=== PATIENT | female | born 2000 | race Hispanic/Latino ===

== ENCOUNTER 2019-07-08 15:32 | Emergency (ER) | payer BC ==
--- OUTSIDE RECORDS SUMMARY | 2019-07-08 15:49 | XMS REPORT ---
:2000 Author Organization eClinicalWorks Care Team Providers Name Role Phone Ave Andrew Provider Role Unavailable Allergies No Known Allergies Problems Problem Type Condition Code Onset Dates Condition Status Problem Encounter for general adult medical Z00.00 Active examination without abnormal findings Problem Asthma, unspecified asthma J45.909 Active severity, unspecified whether complicated, unspecified whether persistent Problem Amenorrhea N91.2 Active Problem Seasonal allergic rhinitis, J30.2 Active unspecified trigger Medications No Known Medications Results No Known Results Summary Purpose eClinicalWorks Submission
--- OUTSIDE RECORDS SUMMARY | 2019-07-08 15:49 | XMS REPORT ---
:2000 Author Organization eClinicalWorks Care Team Providers Name Role Phone Ave Andrew Provider Role Unavailable Allergies, Adverse Reactions, Alerts Substance Reaction Event Type N.K.D.A. Info Not Available Non Drug Allergy Problems Problem Type Condition Code Onset Dates Condition Status Problem Seasonal allergic rhinitis, J30.2 Active unspecified trigger Problem Encounter for general adult medical Z00.00 Active examination without abnormal findings Problem Asthma, unspecified asthma J45.909 Active severity, unspecified whether complicated, unspecified whether persistent Assessment Seasonal allergic rhinitis, J30.2 Active unspecified trigger Assessment Acute urticaria L50.8 Active Assessment Rash R21 Active Problem Infection of nail bed of finger of L03.011 Active right hand Problem Acute rhinitis J00 Active Problem Loss of appetite R63.0 Active Problem Hemorrhoids, unspecified hemorrhoid K64.9 Active type Problem Amenorrhea N91.2 Active Problem Intrinsic eczema L20.84 Active Problem Delayed period N91.0 Active Medications Medication Code Code Instructions Start End Status Dosage System Date Date Triamcinolone [facility] [id number] 0.1 % Jun 06, Active 1 application Acetonide Externally 2019 Twice a day Results No Known Results Summary Purpose eClinicalWorks Submission
--- OUTSIDE RECORDS SUMMARY | 2019-07-08 15:49 | XMS REPORT ---
:2000 Author Organization eClinicalWorks Care Team Providers Name Role Phone Sarah Saunders Provider Role Unavailable Allergies, Adverse Reactions, Alerts Substance Reaction Event Type N.K.D.A. Info Not Available Non Drug Allergy Problems Problem Type Condition Code Onset Dates Condition Status Assessment Hemorrhoids, unspecified hemorrhoid K64.9 Active type Assessment Delayed period N91.0 Active Problem Delayed period N91.0 Active Problem Asthma, unspecified asthma J45.909 Active severity, unspecified whether complicated, unspecified whether persistent Problem Hemorrhoids, unspecified hemorrhoid K64.9 Active type Problem Encounter for general adult medical Z00.00 Active examination without abnormal findings Problem Seasonal allergic rhinitis, J30.2 Active unspecified trigger Problem Amenorrhea N91.2 Active Medications No Known Medications Results Name Result Date Reference Range Unit Abnormality Flag TEST URINE ----RESULTS Negative [id number] Summary Purpose eClinicalWorks Submission
--- OUTSIDE RECORDS SUMMARY | 2019-07-08 15:49 | XMS REPORT ---
[...] unspecified whether complicated, unspecified whether persistent Assessment Acute rhinitis J00 Active Assessment Intrinsic eczema L20.84 Active Assessment Loss of appetite R63.0 Active Assessment Infection of nail bed of finger of L03.011 Active right hand Problem Infection of nail bed of finger of L03.011 Active right hand Problem Acute rhinitis J00 Active Problem Loss of appetite R63.0 Active Problem Hemorrhoids, unspecified hemorrhoid K64.9 Active type Problem Amenorrhea N91.2 Active Problem Intrinsic eczema L20.84 Active Problem Delayed period N91.0 Active Medications Medication Code Code Instructions Start End Status Dosage System Date Date Triamcinolone [facility] [id number] 0.1 % Jun 06, Active 1 application Acetonide Externally 2019 Twice a day Keflex ND [id number] 500 MG Orally Jun 06Jun Active 1 capsule every 12 hrs 2019 Bromfed DM [facility] [id number] 30-2-10 MG/5ML Jun 06, Jun Active 5 ml Orally TID PRN 2019 Results No Known Results Summary Purpose eClinicalWorks Submission
[2019-07-08] MEDS ORDERED: dexAMETHasone 10 MG/ML VIAL ONE (16:26)
[2019-07-08] MEDS ORDERED: DIPHENHYDRAMINE 25 MG TAB/CAP ONE (16:26)
[2019-07-08] MEDS ORDERED: IPRATROPIUM BROM 0.5MG/2.5ML ONE (16:26)
[2019-07-08] MEDS ORDERED: ALBUTEROL 2.5 MG/3 ML NEB SOL ONE (16:26)
[2019-07-08] MEDS ORDERED: FAMOTIDINE 20 MG TAB ONE ×2 (16:27)
[2019-07-08] MEDS ORDERED: ONDANSETRON 4 MG (ODT) TAB ONE (16:27)
--- NOTE | 2019-07-08 16:38 | EDPHYS ---
Physician Documentation [facility] Name: Jesus Newell Age: 19 yrs Sex: Female : 2000 Arrival Date: 07/08/2019 Time: 15:35 Bed 8 Private MD: ED Physician Calin Vasques HPI: 07/07 16:15 This 19 yrs old Female presents to ER via Ambulatory with complaints of Hives, pm1 Breathing Difficulty. 16:15 The patient's rash thought to be caused by an unknown cause. The rash is located on the pm1 body diffusely. The rash can be described as urticarial. 16:15 Onset: The symptoms/episode began/occurred Patient with a cough present for the past pm1 2-3 weeks. Patient with hives for the past week. Has seen two other providers, PCP Lorrie and [facility] for her rash and was administered steroids and breathing treatments. Was discharged home with steroids. Patient is also complaining of decreased appetite for the past 1 month. Associated signs and symptoms: Pertinent negatives: swelling of lips, swelling of throat, swelling of tongue, SOB. Severity of symptoms: in the emergency department the symptoms have improved rash has markedly improved. Historical: - Allergies: 15:47 No Known Allergies; tw2 - Home Meds: 15:47 None [Active]; tw2 - PMHx: 15:47 ezcema; tw2 - PSHx: 15:47 None; tw2 - Immunization history:: Adult Immunizations up to date. - Social history:: Patient/guardian denies using alcohol, street drugs, tobacco products, Smoking status: Patient denies any tobacco usage or history of. ROS: 16:15 Eyes: Negative for injury, pain, redness, and discharge, ENT: Negative for injury, pm1 pain, and discharge, Neck: Negative for injury, pain, and swelling, Cardiovascular: Negative for chest pain, palpitations, and edema. 16:15 Abdomen/GI: Negative for abdominal pain, nausea, vomiting, diarrhea, and constipation, Back: Negative for injury and pain, MS/Extremity: Negative for injury and deformity. 16:15 Neuro: Negative for headache, weakness, numbness, tingling, and seizure. 16:15 Constitutional: Positive for poor PO intake, weight loss, Negative for fever. 16:15 Respiratory: Positive for cough, Negative for shortness of breath. 16:15 Skin: Positive for rash. Exam: 16:15 Constitutional: This is a well developed, well nourished patient who is awake, alert, pm1 and in no acute distress. Head/Face: Normocephalic, atraumatic. Neck: Trachea midline, no thyromegaly or masses palpated, and no cervical lymphadenopathy. Supple, full range of motion without nuchal rigidity, or vertebral point tenderness. No Meningismus. Chest/axilla: Normal chest wall appearance and motion. Nontender with no deformity. No lesions are appreciated. Cardiovascular: Regular rate and rhythm with a normal S1 and S2. No gallops, murmurs, or rubs. Normal PMI, no JVD. No pulse deficits. Abdomen/GI: Soft, non-tender, with normal bowel sounds. No distension or tympany. No guarding or rebound. No evidence of tenderness throughout. Back: No spinal tenderness. No costovertebral tenderness. Full range of motion. 16:15 Respiratory: the patient does not display signs of respiratory distress, Respirations: normal, Breath sounds: bronchial sounds, that are mild, are heard diffusely. 16:15 Skin: Appearance: normal except for affected area, consistent with urticaria, on the right arm and left arm. 16:15 Neuro: Orientation: is normal, Mentation: is normal, Motor: is normal, moves all fours, Sensation: is normal, no obvious gross deficits, Gait: is steady, at a normal pace, without difficulty. Vital Signs: 15:40 BP 123 / 92; Pulse 78; Resp 17; Temp 98.3(TE); Pulse Ox 99% on R/A; Weight 54.43 kg tw2 (R); Height 5 ft. 4 in. (162.56 cm); Pain 0/10; 16:12 BP 121 / 78; Pulse 88; Resp 17; Pulse Ox 100% ; bp 15:40 Body Mass Index 20.60 (54.43 kg, 162.56 cm) tw2 MDM: 16:15 Patient medically screened. pm1 16:28 Refusal of service: The patient/guardian displays adequate decision making capability pm1 and despite a detailed discussion of alternatives, benefits, risks, and consequences refuses: Medications. 16:28 Data reviewed: vital signs. Data interpreted: Pulse oximetry: on room air is 100 %. pm1 Interpretation: normal. Administered Medications: 16:35 Not Given (Patient Refused): Benadryl 25 mg PO once rb1 16:35 Not Given (Patient Refused): Pepcid 20 mg PO once rb1 16:36 Not Given (Patient Refused): Decadron 10 mg IM once rb1 16:36 Not Given (Patient Refused): Albuterol - atroVENT (3:1) (2.5 mg - 0.5 mg) 3 ml rb1 Nebulizer once 16:36 Not Given (Patient Refused): Ondansetron (Zofran) 4 mg PO once rb1 Disposition: 17:01 Co-signature as Attending Physician, Calin Vasques MD. rn Disposition: 07/08/19 16:38 Patient has left against medical advice. Impression: Urticaria, unspecified, Acute upper respiratory infection, unspecified. - Patients states they are going to Home. - Condition is Undetermined. Follow up: Emergency Department; When: As needed; Reason: Worsening of condition. Follow up: Private Physician; When: Upon discharge from the Emergency Department; Reason: Recheck today's complaints, Continuance of care, Re-evaluation by your physician. - Problem is new. - Symptoms are unchanged. Signatures: Calin Vasques MD MD rn Edie Yoon, RN RN rb1 Baldemar Earl, SUPERVISOR [employer]PERVISOR [employer] pm1 Kiley Vargas RN RN tw2 Chito Boswell RN RN bp Corrections: (The following items were deleted from the chart) 16:53 16:38 07/08/2019 16:38 Patients has left against medical advice. Impression: Urticaria, rb1 unspecified; Acute upper respiratory infection, unspecified. Patient states they are going to Home. Condition is Undetermined. Follow up: Emergency Department; When: As needed; Reason: Worsening of condition. Follow up: Private Physician; When: Upon discharge from the Emergency Department; Reason: Recheck today's complaints, Continuance of care, Re-evaluation by your physician. Problem is new. Symptoms are unchanged. pm1
--- NOTE | 2019-07-08 16:38 | ER ---
Nurse's Notes [facility] Name: Jesus Newell Age: 19 yrs Sex: Female : 2000 Arrival Date: 07/08/2019 Time: 15:35 Bed 8 Private MD: Diagnosis: Urticaria, unspecified;Acute upper respiratory infection, unspecified Presentation: 07/07 15:40 Chief complaint: Patient states: after the benadryl i woke up throwing up, it woke me tw2 up, like i was throwing up, just right before we got here i had hives all over me and itches and my face will swell. so after these 2 steroid injections i dont know what to do Parent and/or Guardian states: she went to the dr on Wednesday, this is the kid who doesn't go to the dr without an appt because she had hives all over and her right ear was really swollen, they saw her and gave her an injection, she went home then, on Wednesday she was at work and they said you have hives go home her lips were swollen and they sent her home, went to [facility] Wednesday after work, they gave her an injection they said she was wheezing and they gave her a breathing tx then said chest xray was fine, gave her a steroid injection and a dose pack, then she went back to work, she started the dose pack on Wednesday, she didn't take the night time one, then she took benadryl. Coronavirus screen: The patient has NOT traveled to a country currently being monitored by the CDC within the last 14 days. Ebola Screen: Patient denies travel to an Ebola-affected area in the 21 days before illness onset. Onset: The symptoms/episode began/occurred last night. Anaphylaxis evaluation, no signs or symptoms of anaphylaxis were noted. Initial Sepsis Screen: Does the patient meet any 2 criteria? No. Patient's initial sepsis screen is negative. Does the patient have a suspected source of infection? No. Patient's initial sepsis screen is negative. Risk Assessment: Do you want to hurt yourself or someone else? Patient reports no desire to harm self or others. 15:40 Method Of Arrival: Ambulatory tw2 15:40 Acuity: CLIVE 3 tw2 Triage Assessment: 15:45 General: Appears in no apparent distress. slender, Behavior is anxious. Pain: Denies tw2 pain. Respiratory: Reports shortness of breath "when the hives happen". Historical: - Allergies: 15:47 No Known Allergies; tw2 - Home Meds: 15:47 None [Active]; tw2 - PMHx: 15:47 ezcema; tw2 - PSHx: 15:47 None; tw2 - Immunization history:: Adult Immunizations up to date. - Social history:: Patient/guardian denies using alcohol, street drugs, tobacco products, Smoking status: Patient denies any tobacco usage or history of. Screenin:00 Abuse screen: Denies threats or abuse. Denies injuries from another. Nutritional bp screening: No deficits noted. Tuberculosis screening: No symptoms or risk factors identified. Fall Risk None identified. Assessment: 16:00 General: Appears in no apparent distress. comfortable, Behavior is cooperative, bp appropriate for age, anxious. Pain: Denies pain. Neuro: No deficits noted. Cardiovascular: No deficits noted. Respiratory: Airway is patent Respiratory effort is even, unlabored, Respiratory pattern is regular, symmetrical, Breath sounds are clear bilaterally. GI: No signs and/or symptoms were reported involving the gastrointestinal system. : No signs and/or symptoms were reported regarding the genitourinary system. EENT: No deficits noted. Derm: Rash noted that is NONE. Musculoskeletal: No deficits noted. 16:36 Reassessment: I went into the pt. room to medicate her and she refused all medication. rb1 Pt. stated, "I don't even want to be seen, I've already had all this medication and it doesn't work." Pt. was upset and arguing with family at the bedside. I explained why the provider ordered those specific medications and the pt. continued to refuse. She wants to leave A. Vital Signs: 15:40 BP 123 / 92; Pulse 78; Resp 17; Temp 98.3(TE); Pulse Ox 99% on R/A; Weight 54.43 kg tw2 (R); Height 5 ft. 4 in. (162.56 cm); Pain 0/10; 16:12 BP 121 / 78; Pulse 88; Resp 17; Pulse Ox 100% ; bp 15:40 Body Mass Index 20.60 (54.43 kg, 162.56 cm) tw2 ED Course: 15:35 Patient arrived in ED. ag5 15:45 Triage completed. tw2 15:45 Arm band placed on. tw2 15:49 Baldemar Earl NP is PHCP. pm1 15:49 Calin Vasques MD is Attending Physician. pm1 16:00 Patient has correct armband on for positive identification. Bed in low position. Call bp light in reach. Side rails up X2. Adult w/ patient. 16:04 Chito Boswell, RN is Primary Nurse. bp 16:39 No provider procedures requiring assistance completed. Patient did not have IV access rb1 during this emergency room visit. Administered Medications: 16:35 Not Given (Patient Refused): Benadryl 25 mg PO once rb1 16:35 Not Given (Patient Refused): Pepcid 20 mg PO once rb1 16:36 Not Given (Patient Refused): Decadron 10 mg IM once rb1 16:36 Not Given (Patient Refused): Albuterol - atroVENT (3:1) (2.5 mg - 0.5 mg) 3 ml rb1 Nebulizer once 16:36 Not Given (Patient Refused): Ondansetron (Zofran) 4 mg PO once rb1 Outcome: 16:39 AMA AMA form signed rb1 16:39 Condition: stable 16:53 Patient left the ED. rb1 Signatures: Edie Yoon, MARIBEL LÓPEZ rb1 Baldemar Earl NP SOFTWARE APPLICATION TESTER pm1 Kiley Vargas RN RN tw2 Chito Boswell, Titi Alfaro RN ag5
[2019-07-08 16:57] VITALS: TEMP 98.3
[2019-07-08 16:59] VITALS: BP 121/78; O2SAT 100
== END 2019-07-08 16:53 | disposition left against medical advice (07) ==
LOC: ER 15:32
DX: L50.9 Urticaria, unspecified (principal); J06.9 Acute upper respiratory infection, unspecified
CPT/HCPCS: 99281; J1100

== ENCOUNTER 2020-06-20 15:00 | Emergency (ER) | payer BC ==
[2020-06-20 18:35] LABS: Absolute Lymphocytes (CBC) 2.1 K/uL (0.7-4.9); Basophils % 0.5 % (0-1.3); Hematocrit 32.3 % (36.0-45.0); Lymphocytes % 24.5 % (15.3-44.8); MPV 7.6 fL (7.6-11.3); RBC Red Blood Cell Count 3.95 M/uL (3.86-4.86)
[2020-06-20 19:16] LABS: BUN Blood Urea Nitrogen 11 mg/dL (7-18); Bicarbonate 24 mmol/L (21-32); Glucose Level 81 mg/dL (74-106); HCG, Quantitative 19114 mIU/mL (1-3); Potassium 3.6 mmol/L (3.5-5.1); Sodium Level 138 mmol/L (136-145)
[2020-06-20 19:24] LABS: Urine Blood NEGATIVE (NEG); Urine Glucose NEGATIVE (NEG); Urine Protein NEGATIVE (NEG); Urine Specific Gravity >1.030 (1.005-1.030); Urine pH 6.5 (5.0-7.0)
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
--- NOTE | 2020-06-20 19:58 | RAD REPORT ---
EXAM DESCRIPTION: US - Transvaginal OB - 06/20/2020 7:41 pm CLINICAL HISTORY: ABD CRAMPING, COMPARISON: No comparisons FINDINGS: A single gestational sac is seen within the uterus. The shape of the sac is mildly oblong and irregular. Mean sac diameter is 10 mm correlating to 5 weeks 6 days gestational age. No embryo or yolk sac seen. The maternal adnexa are within normal limits. Left ovary is normal with normal blood flow. The right ovary was obscured by bowel gas. IMPRESSION: A gestational sac is present within the uterus. No embryonic components are seen. Early IUP versus blighted ovum on the most likely possibilities. Recommend serial HCG levels and follow-up pelvic sonography in 7-10 days.
[2020-06-20 20:19] VITALS: TEMP 99.1; O2SAT 100
[2020-06-20 20:20] VITALS: BP 109/66
== END 2020-06-20 20:14 | disposition home or self-care (01) ==
LOC: ER 15:00
DX: Z04.71 Encounter for examination and observation following alleged adult physical abuse (principal); Z3A.01 Less than 8 weeks gestation of pregnancy
CPT/HCPCS: 36415; 76817; 80048; 81003; 81025; 84702; 85025; 86900; 86901; 99283

== ENCOUNTER 2021-02-10 23:35 | Inpatient (IN) | payer BC, OTHER ==
[2021-02-11] MEDS ORDERED: BUTORPHANOL 1 MG/ML INJ IV PRN
[2021-02-11] MEDS ORDERED: Ringers Lactate 1,000 ML IV PRN
[2021-02-11] MEDS ORDERED: PROMETHAZINE INJ 25 MG/ML AMP IM PRN
[2021-02-11] MEDS: Ringers Lactate 1,000 ML IV SCH ×3 (00:25→09:30)
[2021-02-11 01:09] LABS: Absolute Lymphocytes (CBC) 2.3 K/uL (0.7-4.9); Basophils % 0.1 % (0-1.3); Lymphocytes % 18.1 % (15.3-44.8); MPV 7.4 fL (7.6-11.3); RBC Red Blood Cell Count 3.98 M/uL (3.86-4.86)
[2021-02-11] MEDS ORDERED: OXYTOCIN 10 UNIT/ML ML ONE ×2 (01:22→17:00)
[2021-02-11] MEDS ORDERED: Ringers Lactate 2,000 ML IV ONE (01:22)
[2021-02-11 01:25] LABS: Urine Appearance CLEAR (Clear); Urine Bilirubin NEGATIVE (Negative); Urine Blood NEGATIVE (Negative); Urine Color YELLOW (Yellow); Urine Glucose NEGATIVE (Negative); Urine Protein NEGATIVE (Negative); Urine Specific Gravity 1.015 (1.005-1.030); Urine Urobilinogen 0.2 mg/dL (0.2-1.0)
[2021-02-11 01:26] LABS: Urine Microscopic Reflex ORDER UMIC
[2021-02-11 01:42] LABS: RPR (Rapid Plasma Reagin) NON-REACT (NON-REACT)
[2021-02-11 01:47] VITALS: BMI 29.5
[2021-02-11 01:55] LABS: Urine Bacteria 20-50 /HPF (<20); Urine RBC NONE SEEN /HPF (NONE SEEN)
--- NOTE | 2021-02-11 07:37 | PREOPHP ---
Date of Admission: 02/10/2021 History Of Present Illness: A 20-year-old, primigravida, at 39 weeks and 5 days, for labor induction . Came in at midnight, is on 12 milliunits of Pitocin, saray regularly. Baby looks good. Vit al signs are stable. She is 2 cm, 60% effaced, but the vertex is still slightly high. We will wait until the next pelvic exam decides whether rupture of membranes. She knows of membranes rupture spon taneously to tell the nurses. Family History: Maternal and paternal grandparents with hypertension. No other significant family h istory. Past Medical History: No serious medical illnesses. Past Surgical History: No previous surgeries. Social History: Does not smoke. Medications: vitamins prior to admission. Physical Examination: HEENT: Clear. Pupils equal, round, and reactive to light and accommodation. Conjunctivae well perf used. No oral, lingual, or buccal lesions. Chest and Lungs: Clear. Heart: Without murmurs, thrills, heaves, or rubs. Breasts: Without masses on previous visits. Extremities: Clear without edema, cyanosis, or clubbing. Pelvic: As stated. Assessment And Plan: Essentially healthy female for labor induction and early labor at this point. HAIM/ANA Voice ID: [id number]
[2021-02-11] MEDS ORDERED: LIDOCAINE 1% MPF 30 ML VIAL ONE (07:45)
--- NOTE | 2021-02-11 10:49 | PN ---
She is now on 16 milliunits of Pitocin, saray regularly, still fairly comfortable. She is now 2.5, almost 3 cm. The cervix is still somewhat posterior, now 60, may be 70% effaced, but the baby i s still higher than I would like for rupture of membranes. She knows if membranes rupture spontaneou sly she is to tell the nurse to make sure there is no cord problem. We will check her again in about an hour and a half. We will see if membranes rupture spontaneously or when the baby's head comes do wn low enough I will rupture membranes and I will expedite labor, but right now I think continued mon itoring is the best course of action. HAIM/ANA Voice ID: [id number] Report ID: [id number]
[2021-02-11] MEDS ORDERED: CARBOPROST TROME 250 MCG/ML IM PRN ×2 (12:55)
[2021-02-11] MEDS ORDERED: METHYLERGONOVINE 0.2MG/ML AMP IM PRN ×2 (12:55)
[2021-02-11] MEDS ORDERED: FENTANYL CITR 100 MCG/2 ML IV ONE (12:57)
[2021-02-11] MEDS ORDERED: FENTANYL/BUPIVACAINE/NS/PF 200 MCG/100 ML BAG EP PRN (12:57)
[2021-02-11] MEDS ORDERED: BUPIVACAINE 0.25% PF 30 ML VIAL IV ONE (12:58)
[2021-02-11] MEDS ORDERED: BUPIVACAINE 0.25% PF 10 ML VIAL ONE (14:27)
--- NOTE | 2021-02-11 15:06 | PN ---
The patient is saray every minute now. Baby still looks very good. Vital signs are stable. S he is still posterior, now though 3 cm, at least 70% effaced. Membranes bulged when she has contract ion, but the baby still is ballotable in between. She knows if membranes rupture spontaneously, we n eed to check her immediately. We will check her again in an hour. She wants analgesics. Right now, we will give her Stadol 1 mg IV, Phenergan 25 mg IM, and see if that can tide her over until we get membranes ruptured and baby lower. HAIM/ANA Voice ID: [id number] Report ID: [id number]
[2021-02-11] MEDS ORDERED: Oxycodone HCl/Acetaminophen 1 TAB TAB PO PRN ×2 (16:09)
[2021-02-11] MEDS ORDERED: ACETAMINOPHEN 500 MG TAB PO PRN (16:09)
[2021-02-11] MEDS ORDERED: DIPHENHYDRAMINE 25 MG TAB/CAP PO PRN (16:09)
[2021-02-11] MEDS ORDERED: BISACODYL 10 MG RECTAL SUPP PR PRN (16:09)
[2021-02-11] MEDS ORDERED: DOCUSATE NA/SENNA CONC 1 TAB PO PRN (16:09)
[2021-02-11] MEDS ORDERED: IBUPROFEN 600 MG TAB PO PRN (16:33)
[2021-02-11] MEDS ORDERED: OXYTOCIN/LR 20 UNIT/1,000 ML BAG IV SCH ×2 (17:00)
[2021-02-11] MEDS ORDERED: Ringers Lactate 1,000 ML IV ONE (17:00)
--- NOTE | 2021-02-12 00:55 | OP ---
Surgeon: Kulwant Velez MD A 20-year-old primigravida 39 weeks 5 days at the time of delivery, came in last night approximately midnight, started on Pitocin. This morning, she was 2 cm, but baby is still very high, progressed to approximately 4 cm at which time, the baby was low enough that rupture of membranes was performed cl ear fluid. She received Stadol 1 mg IV, 25 mg of Phenergan IM, at approximately 5 cm requested, rece ived epidural anesthesia, which actually was too effective and the patient could not feel anything. Maintenance dose was set at 12, we moved it to 6 and eventually turned it off and the patient still r eally never felt anything. Second stage of about 25 minutes spontaneous vaginal delivery of estimate d 7 pounds male , Apgars 8 and 9. Baby with good muscle tone, good skin color, but really was not very vociferous on the crying, looked quite alert. Oxygen levels were normal, but we have called Dr. Edward just to better assess the baby. Baby is crying now, but still more of a high-pitched so und, then seems normal. The patient tolerated all procedures well. Final Diagnoses: Intrauterine gestation 39 weeks 5 days at time of delivery. Epidural anesthesia. Rh positive, immune to Rubella. Negative COVID. Negative strep. Supervisor Spinning notified. HAIM/ANA Voice ID: [id number] Report ID: [id number]
[2021-02-12] MEDS ORDERED: Ringers Lactate 1,000 ML IV ONE (05:28)
[2021-02-12 16:40] VITALS: BP 117/62; TEMP 97.1
--- NOTE | 2021-02-12 20:44 | DS ---
Date of Discharge: 02/12/2021 Hospital Course: This is a 20-year-old, primigravida, 39 weeks 5 days, delivered of a 6-pound 13-oun ce male infant, Apgars 8 and 9. Baby was alert, even crying, but high-pitched type cry. Good muscle tone. Good color. Heart rate over 100. Dr. Edward came in and by the time she got here, baby was crying normally. Probably did not open the base of his lungs, but otherwise did well and has been d oing well at this point. The patient had epidural anesthesia, first-degree laceration requiring abou t 4-5 stitches, 2-0 chromic. Schultze delivery of the placenta. Less than 300 mL blood loss. Rh po sitive, immune to rubella, negative strep, negative COVID. ; afebrile, ambulating, voiding . Lochia is normal. The patient will be dismissed later this afternoon to report back to my office in 6 weeks for followup to report any temperature elevation of 100 degrees or greater, severe pain, h eavy bleeding, or any other type of abnormalities. Requests no analgesics on dismissal. Final Diagnoses: Term intrauterine at 39 weeks 5 days, vaginal delivery, epidural anesthes ia. HAIM/ANA Voice ID: [id number] Report ID: [id number]
[2021-02-14 03:51] LABS: HBsAG Nonreactive (Nonreactive)
== END 2021-02-12 18:08 | disposition home or self-care (01) | DRG 807 ==
LOC: 2ND-WC 23:35
PROVIDERS: ADMIT Specialist; ATTEND Specialist
PROC: 10907ZC Drainage of Amniotic Fluid, Therapeutic from Products of Conception, Via Natural or Artificial Opening (ICD-10-PCS; principal; 2021-02-11)
PROC: 10E0XZZ Delivery of Products of Conception, External Approach (ICD-10-PCS; 2021-02-11)
PROC: 0HQ9XZZ Repair Perineum Skin, External Approach (ICD-10-PCS; 2021-02-11)
DX: O70.0 First degree perineal laceration during delivery (principal); Z37.0 Single live birth; Z3A.39 39 weeks gestation of pregnancy
CPT/HCPCS: 36415; 81003; 81015; 85025; 86592; 86850; 86900; 86901; 87086; 87088; 87340; 88307; J0595; J2210; J2550; J3010; J7120

== ENCOUNTER 2025-02-21 04:20 | Emergency (ER) | payer BC, OTHER ==
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
--- NOTE | 2025-02-21 09:47 | ER ---
Nurse's Notes [facility] Name: Jesus Newell Age: 24 yrs Sex: Female : 2000 Arrival Date: 02/21/2025 Time: 04:20 Bed 16 Private MD: Diagnosis: Tachycardia, unspecified Presentation: 02/21 04:46 Chief complaint: Patient states: "I think I might just be dehydrated." Reports having nh2 dry mouth and dry eyes, nausea, and not drinking enough water for the past 3 days. Coronavirus screen: Client denies travel out of the [place] in the last 14 days. At this time, the client does not indicate any symptoms associated with coronavirus-19. Ebola Screen: Patient denies travel to an Ebola-affected area in the 21 days before illness onset. No symptoms or risks identified at this time. Initial Sepsis Screen: Does the patient meet any 2 criteria? HR > 90 bpm. Does the patient have a suspected source of infection? No. Patient's initial sepsis screen is negative. Risk Assessment: Do you want to hurt yourself or someone else? Patient reports no desire to harm self or others. Onset of symptoms was February 21, 2025. 04:46 Method Of Arrival: Ambulatory nh2 04:46 Acuity: CLIVE 3 nh2 Triage Assessment: 04:53 General: Appears in no apparent distress. Behavior is cooperative, anxious. General: nh2 reports having a headache prior to coming to hospital, but took ibuprofen at home. Pain: Denies pain. EENT: No signs and/or symptoms were reported regarding the EENT system. Neuro: Level of Consciousness is awake, alert, obeys commands, Oriented to person, place, time, situation, Appropriate for age Denies dizziness, headache. Cardiovascular: Denies chest pain, Patient's skin is warm and dry. Rhythm is sinus tachycardia. Respiratory: Respiratory effort is even, unlabored, Denies cough, shortness of breath. GI: Abdomen is round non-distended, Reports constipation, nausea, Patient currently denies vomiting. : Reports having low urine output for the last 3 days. Derm: Skin is intact, with poor turgor Skin is pink, warm \\T\\ dry. Musculoskeletal: Circulation, motion, and sensation intact. Range of motion: intact in all extremities. [employer]: 04:57 LMP 02/16/2025, unknown nh2 Historical: - Allergies: 04:53 No Known Allergies; nh2 - PMHx: 04:53 EZCEMA; nh2 - PSHx: 04:53 None; nh2 - Immunization history:: Adult Immunizations unknown. - Infectious Disease History:: Denies. - Social history:: Smoking status: Reported history of juuling and/or vaping. - Family history:: not pertinent. Screenin:56 [facility] ED Fall Risk Assessment (Adult) History of falling in the last 3 months, nh2 including since admission No falls in past 3 months (0 pts) Confusion or Disorientation No (0 pts) Intoxicated or Sedated No (0 pts) Impaired Gait No (0 pts) Mobility Assist Device Used No (0 pt) Altered Elimination No (0 pt) Score/Fall Risk Level 0 - 2 = Low Risk Oriented to surroundings, Maintained a safe environment, Educated pt \\T\\ family on fall prevention, incl call for assistance when getting out of bed, Assessed \\T\\ reinforced patient's understanding of fall precautions. Abuse screen: Denies threats or abuse. Denies injuries from another. Nutritional screening: No deficits noted. Tuberculosis screening: No symptoms or risk factors identified. Assessment: 04:57 Reassessment: see triage. nh2 05:57 Reassessment: Patient and/or family updated on plan of care and expected duration. Pain nh2 level reassessed. Patient is alert, oriented x 3, equal unlabored respirations, skin warm/dry/pink. Patient states feeling better. 06:29 Reassessment: Patient and/or family updated on plan of care and expected duration. Pain nh2 level reassessed. Patient is alert, oriented x 3, equal unlabored respirations, skin warm/dry/pink. Patient denies pain at this time. 07:30 Reassessment: Patient appears in no apparent distress at this time. Patient and/or ph family updated on plan of care and expected duration. Pain level reassessed. Patient is alert, oriented x 3, equal unlabored respirations, skin warm/dry/pink. 08:27 Reassessment: Patient appears in no apparent distress at this time. Patient and/or ph family updated on plan of care and expected duration. Pain level reassessed. Patient is alert, oriented x 3, equal unlabored respirations, skin warm/dry/pink. Patient denies pain at this time. Patient states feeling better. Vital Signs: 04:46 BP 165 / 116; Pulse 162; Resp 19; Temp 98.6; Pulse Ox 100% ; Weight 72.12 kg; nh2 05:26 BP 126 / 90; Pulse 96; Resp 20; Pulse Ox 99% on R/A; nh2 06:00 BP 124 / 77; Pulse 94; Resp 20; Pulse Ox 100% on R/A; nh2 06:30 BP 123 / 96; Pulse 85; Resp 19; Pulse Ox 100% on R/A; nh2 07:30 BP 124 / 86; Pulse 76; Resp 18; Temp 97.4; Pulse Ox 99% on R/A; ph [place] Coma Score: 05:07 Eye Response: spontaneous(4). Motor Response: obeys commands(6). Verbal Response: sp4 oriented(5). Total: 15. 06:58 Eye Response: spontaneous(4). Motor Response: obeys commands(6). Verbal Response: sp4 oriented(5). Total: 15. ED Course: 04:33 Patient arrived in ED. gm2 04:37 Phil Menard Jr, RN is Primary Nurse. nh2 04:53 Triage completed. nh2 04:56 Evens La MD is Attending Physician. sp4 04:56 Patient has correct armband on for positive identification. Bed in low position. Call nh2 light in reach. Side rails up X 1. Provided Education on: using call light for assistance. 04:56 No provider procedures requiring assistance completed. nh2 04:57 Arm band placed on right wrist. nh2 05:06 Inserted saline lock: 20 gauge in right antecubital area, using aseptic technique. nh2 Blood collected. Flushed with 10 mL NS. 05:27 Inserted saline lock: 20 gauge in left antecubital area, using aseptic technique. Blood nh2 collected. Flushed with 10 mL NS. 08:27 IV discontinued, intact, bleeding controlled, No redness/swelling at site. Pressure ph dressing applied. Administered Medications: 05:11 Drug: NS 0.9% IV 1000 ml IV at 1000 ml once; to be given as a bolus over 60 minutes kd3 Route: IV; Rate: 1000 ml; Site: right antecubital; 06:31 Follow up: IV Status: Completed infusion; IV Intake: 1000ml nh2 05:11 Drug: NS 0.9% IV 1000 ml IV at 1000 ml once; to be given as a bolus over 60 minutes kd3 Route: IV; Rate: 1000 ml; Site: right antecubital; 06:31 Follow up: IV Status: Completed infusion; IV Intake: 1000ml nh2 05:11 Drug: Propranolol PO 40 mg PO once Route: PO; kd3 05:30 Follow up: Response: No adverse reaction; Blood pressure is lowered nh2 Medication: 04:56 VIS not applicable for this client. nh2 Intake: 06:31 IV: 1000ml; Total: 1000ml. nh2 06:31 IV: 1000ml; Total: 2000ml. nh2 Outcome: 07:15 Discharge ordered by MD. [place] 08:28 Discharged to home ambulatory, ph 08:28 Condition: good 08:28 Discharge instructions given to patient, Instructed on discharge instructions, follow up and referral plans. Demonstrated understanding of instructions, follow-up care, 08:28 Patient left the ED. ph Signatures: Gayle Matson RN RN Rama Escalante RN RN kd3 Evens La MD MD sp4 Celi Bernard 2 Phil Menard Jr, RN RN nh2 Corrections: (The following items were deleted from the chart) 04:58 04:46 Chief complaint: Patient states: pt reports having dry mouth and eyes, headache, nh2 and not drinking enough water for the past 3 days nh2 05:05 04:53 GI: Abdomen is round non-distended, Reports nausea, Patient currently denies nh2 vomiting, nh2 05:30 04:46 Chief complaint: Patient states: pt states "I think I might just be dehydrated." nh2 Reports having dry mouth and dry eyes, nausea, and not drinking enough water for the past 3 days nh2
[2025-02-21 10:59] LABS: Absolute Lymphocytes (CBC) 3.3 K/uL (0.7-4.9); Hematocrit 36.7 % (36.0-45.0); Hemoglobin 12.3 g/dL (12.0-15.0); MCH 26.0 pg (27.0-35.0); MCHC 33.6 g/dL (32.0-36.0); MCV 77.3 fL (80-100); MPV 8.4 fL (7.6-11.3); Nucleated RBC Absolute Count 0.0 (0-0); Nucleated Red Blood Cells % 0.0 % (0-0); RBC Red Blood Cell Count 4.74 M/uL (3.86-4.86); White Blood Count 10.40 thou/uL (4.3-10.9)
[2025-02-21 11:00] LABS: PT Prothrombin Time 11.8 SECONDS (10-13.0); Protime INR 1.05
--- NOTE | 2025-02-21 11:02 | RAD REPORT ---
EXAM: Chest Single View HISTORY: 24 years Female ELEVATED PULSE COMPARISON: No prior exams FINDINGS: LUNGS/PLEURA: The lungs are clear. No pleural effusions or pneumothorax. No pulmonary edema. CARDIAC/MEDIASTINUM: The cardiac silhouette is within normal limits. UPPER ABDOMEN: No significant abnormality. BONES: No acute abnormality. Thoracolumbar curvature. LINES/TUBES/OTHER: N/A IMPRESSION: No evidence of acute cardiopulmonary disease.
[2025-02-21 11:27] LABS: ALT/SGPT 27 U/L (13-56); AST/SGOT 22 U/L (15-37); Albumin 3.4 g/dL (3.4-5.0); Albumin/Globulin Ratio 0.8 (1.1-1.8); Alkaline Phosphatase 66 U/L (45-117); Anion Gap 12.8 mEq/L (5.0-15.0); BUN Blood Urea Nitrogen 11 mg/dL (7-18); Bilirubin Indirect, Calculated 0.0 mg/dL (0.2-0.8); Globulin 4.3 g/dL (2.3-3.5); Glucose Level 113 mg/dL (74-106); NT PRO-BNP 30 pg/mL (<125); Potassium 2.8 mEq/L (3.5-5.1)
[2025-02-21 11:28] LABS: Thyroid Stimulating Hormone 3.940 uIU/mL (0.358-3.740); Troponin High Sensitivity < 3.0 pg/mL (<58.9)
[2025-02-21 12:02] VITALS: BP 136/96; TEMP 98.1; O2SAT 100
[2025-02-21 12:15] LABS: Magnesium 1.8 mg/dL (1.6-2.4)
== END 2025-02-21 08:28 | disposition home or self-care (01) ==
LOC: ER 04:20
DX: R00.0 Tachycardia, unspecified (principal); R51.9 Headache, unspecified; R11.0 Nausea; R68.2 Dry mouth, unspecified; F17.290 Nicotine dependence, other tobacco product, uncomplicated
CPT/HCPCS: 36415; 71045; 80048; 80076; 82550; 83605; 83735; 83880; 84439; 84443; 84484; 84703; 85025; 85610; 86308; 87040; 93005; 96360; 99284